=== PATIENT | female | born 1970 | race Two or more races ===

== ENCOUNTER 2022-11-20 14:50 | Inpatient (IN) | payer OTHER ==
[~2022-11-20] VITALS: Ht 157.5 cm; Wt 59.0 kg
[~2022-11-20 14:50] MED LIST: DORYX100 MG PO; KETO10TA2 PO
[2022-11-21] MEDS ORDERED: FLEET BISACODYL5 MG (10:19)
[2022-11-21] MEDS ORDERED: HYDROCORT-PRAMO30 G1 (10:19)
== END 2022-11-22 10:19 | disposition home or self-care (01) | DRG 349 ==
LOC: ER 14:50 → SURG 16:17
PROVIDERS: ADMIT Colon & Rectal Surgery; ATTEND Colon & Rectal Surgery
PROC: 06BY0ZC Excision of Hemorrhoidal Plexus, Open Approach (ICD-10-PCS; 2022-11-21)
PROC: 06LY8CC Occlusion of Hemorrhoidal Plexus with Extraluminal Device, Via Natural or Artificial Opening Endoscopic (ICD-10-PCS; principal; 2022-11-21 10:45)
DX: K64.2 Third degree hemorrhoids (principal); K64.1 Second degree hemorrhoids